=== PATIENT | male | born 1990 | race Caucasian/White ===

== ENCOUNTER 2017-05-16 00:20 | Emergency (ER) | payer SELFPAY ==
[~2017-05-16] VITALS: Ht 170.2 cm; Wt 72.9 kg
[2017-05-16 00:28] VITALS: TEMP 36.7; Ht 170.2 cm; Wt 72.9 kg
--- NOTE | 2017-05-16 00:49 | EMERGENCY ROOM VISIT NOTE ---
History Report prepared by Alexei: Mian Biggs Under the Supervision of: Dr. Lashell Owen D.O. First contact with patient: 00:28 Chief Complaint: ALCOHOL OVERDOSE Stated Complaint: ALCOHOL OVERDOSE Nursing Triage Summary: alcohol overdose History of Present Illness The patient is a 26 year old male who presents to the Emergency Room with an alcohol overdose. EMS states the patient was found passed out on a grate. They report the patient was mildly combative, but he is not anymore. EMS note the patient may have injured his head, but they do not know for sure. The patient states he was drinking beers and does not remember how he got to the grate. He reports he received his flu shot today. The patient denies a history of diabetes mellitus and drug use. The patient's history was limited by intoxication. Source of History: nursing staff History Limited By: intoxication Review of Systems ROS limited secondary to the patient's intoxication. Past Medical & Surgical Past medical and surgical history unobtainable secondary to the patient's intoxication. Family History Family history unobtainable secondary to the patient's intoxication. Social History Smoking Status: Never Smoker Alcohol Use: occasionally Occupation Status: [employer] student Current/Historical Medications No Active Prescriptions or Reported Meds Allergies Coded Allergies: No Known Allergies (Unverified , 05/16/17) Physical Exam Vital Signs Date Time Temp Pulse Resp B/P (MAP) Pulse Ox O2 Delivery O2 Flow Rate FiO2 05/16/17 05:55 87 18 144/99 99 05/16/17 05:11 82 19 98 05/16/17 05:01 102/73 05/16/17 04:56 66 98 05/16/17 04:51 72 17 97 05/16/17 04:36 78 99 05/16/17 04:33 117/67 05/16/17 04:21 67 19 92 05/16/17 04:12 64 05/16/17 04:06 55 18 96 05/16/17 03:51 86 18 94 05/16/17 03:36 57 19 96 05/16/17 03:31 122/69 05/16/17 03:30 57 19 96 05/16/17 03:18 120/62 05/16/17 03:15 58 20 95 05/16/17 03:00 62 19 95 05/16/17 02:45 67 19 97 05/16/17 02:40 88 21 98 05/16/17 02:31 141/80 05/16/17 02:25 114 23 99 05/16/17 02:24 172/90 05/16/17 01:50 93 17 92 05/16/17 01:35 104 16 99 05/16/17 01:31 151/92 05/16/17 01:20 85 98 05/16/17 01:05 75 26 99 05/16/17 01:02 126/79 05/16/17 00:50 71 96 05/16/17 00:37 86 05/16/17 00:37 155/72 05/16/17 00:35 84 18 98 Room Air 05/16/17 00:28 36.7 86 22 162/108 99 Room Air 05/16/17 00:23 162/108 Physical Exam General: Awake, alert, easily communicates HEENT: Head - normocephalic and atraumatic Pupils are 6mm equal, round, and reactive to light. Extraocular eye muscles are intact, and sclera are anicteric. Nose - moist nasal mucosa without discharge. Mouth - moist buccal mucosa. Oropharynx is nonerythematous and there is no tonsillar exudate or edema noted. Neck: Supple; no JVD, nuchal rigidity, cervical lymphadenopathy. Heart: Tachycardic rate and regular rhythm. There is a normal S1 and S2 with no murmurs, clicks, or gallops appreciated. Lungs: Clear to auscultation bilaterally with no wheezes, rales, or rhonchi. Abdomen: Soft, completely nontender, nondistended, with good bowel sounds. There are no palpable pulsatile masses or hepatosplenomegaly. There is no guarding, rigidity, or rebound noted. Extremities: No evidence of cyanosis, clubbing, or edema. There are easily palpable peripheral pulses. Skin: warm and dry with good turgor and no rashes. Medical Decision & Procedures Laboratory Results 05/16/17 00:25 Test 05/16/17 00:25 Anion Gap 8.0 mmol/L (3-11) Est Creatinine Clear Calc Drug Dose 94.3 ml/min Estimated GFR () 106.1 Estimated GFR (Non- 91.5 BUN/Creatinine Ratio 11.1 (10-20) Calcium Level 9.5 mg/dl (8.5-10.1) Ethyl Alcohol mg/dL 265.0 mg/dl (0-3) Laboratory results per my review. ED Course 0041: Past medical records reviewed. The patient was evaluated in room B12B. A complete history and physical exam was performed. Laboratory studies were drawn as above. The patient was placed in the prone position to avoid aspiration. He was observing the cardiac tech and pulse oximeter. 0223: The patient stood up and urinated on the supply cart in the room. Nursing staff directed the patient back to the bed but he refused. Security was summoned. The patient required physical restraints. The patient was placed in 4 point leather restraints. He was sound asleep after this. 0409: I reevaluated the patient, and he is sound asleep. The leather restraints had been removed. 0524: Upon reevaluation, the patient is stable. I discussed findings and results with him. 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 He verbalized agreement of the treatment plan. The patient was discharged home. Medical Decision The patient is a 26 year old male who presents to the ED with an alcohol overdose. Differential diagnosis includes alcohol overdose, drug intoxication, head injury, hypoglycemia. Lab results show: alcohol of 265, potassium of 3.2, normal renal function, normal glucose. The patient presents to the emergency department after consuming too much alcohol. There was some question whether or not the patient may have to head injury. The patient denies striking his head or losing consciousness. He had no outward signs of trauma. The patient was observed here in the emergency department until he was more sober. I reviewed his labs with him. He was encouraged to avoid such excessive alcohol use in the future. Impression Primary Impression: Alcohol overdose Critical Care I have personally spent greater than 30 minutes of critical care time in the direct management of this patient. This includes bedside care, interpretation of diagnostic studies, and testing, discussion with consultants, patient, and family members, and other required patient management activities. This 30 minutes is in excess of all separately billable procedures. Scribe Attestation The scribe's documentation has been prepared under my direction and personally reviewed by me in its entirety. I confirm that the note above accurately reflects all work, treatment, procedures, and medical decision making performed by me. Departure Information Dispostion Home / Self-Care Prescriptions No Active Prescriptions or Reported Meds Referrals No Doctor, Assigned (PCP) Forms HOME CARE DOCUMENTATION FORM, IMPORTANT VISIT INFORMATION Patient Instructions ED Overdose Alcohol, My [facility] Additional Instructions Avoid such excessive alcohol use in the future. Rest. Take plenty of clear liquids Take tylenol for headache Problem Qualifiers Primary Impression: Alcohol overdose Encounter type: initial encounter Injury intent: accidental or unintentional Qualified Codes: T51.91XA - Toxic effect of unspecified alcohol , accidental (unintentional), initial encounter
[2017-05-16 01:02] LABS: BUN/CREATININE RATIO 11.1 (10-20); CALCIUM 9.5 mg/dl (8.5-10.1); CREATININE 1.1 mg/dl (0.60-1.40); POTASSIUM 3.2 mmol/L (3.5-5.1)
[2017-05-16 05:55] VITALS: BP 144/99; PULSE 87; O2SAT 99
== END 2017-05-16 05:56 | disposition home or self-care (01) ==
LOC: C.EDB 00:21 → EDBD 00:21 → C.EDB 05:56
DX: T51.91XA Toxic effect of unspecified alcohol, accidental (unintentional), initial encounter (principal)